=== PATIENT | male | born 1960 | race Caucasian/White ===

== ENCOUNTER 2023-12-03 10:10 | Day surgery (SDC) | payer OTHER ==
[~2023-12-03] VITALS: Ht 170.2 cm; Wt 77.2 kg
[~2023-12-03 10:10] MED LIST: OCUV1CAP4 PO; PANT20TA6 PO; THERTAB52 PO
[2023-12-03] MEDS: NS 1,000 ML IV ONE (11:09)
[2023-12-03 12:37] VITALS: TEMP 97.1
[2023-12-03 12:52] VITALS: BP 105/55; O2SAT 98
== END 2023-12-03 13:14 | disposition home or self-care (01) ==
LOC: M OPP 10:10
PROVIDERS: ATTEND Internal Medicine Gastroenterology
DX: Z12.11 Encounter for screening for malignant neoplasm of colon (principal); Z12.12 Encounter for screening for malignant neoplasm of rectum; K21.9 Gastro-esophageal reflux disease without esophagitis; E11.9 Type 2 diabetes mellitus without complications; Z79.899 Other long term (current) drug therapy; Z87.891 Personal history of nicotine dependence

== ENCOUNTER → 2025-06-14 | Outpatient (CLI) | payer OTHER ==
[~2025-06-14] MED LIST changes: +PROHANCE 279.3MG/ML 15ML VIAL As Ordered ONE
== END ==
LOC: M RAD 07:25
PROVIDERS: ATTEND Orthopaedic Surgery Hand Surgery
DX: M25.861 Other specified joint disorders, right knee (principal)
CPT/HCPCS: 73723; A9576